=== PATIENT | female | born 1940 | race Caucasian/White ===

== ENCOUNTER → 2016-12-25 | Outpatient (CLI) | payer OTHER, MEDICARE ==
[2016-12-25 12:45] LABS: BASO % 0.3 %; BASO ABS # 0.03 K/uL (0-0.2); COMPLETE YES; EOS % 4.4 %; HEMATOCRIT 35.2 % (37-47); IG% 0.3 %; LYMPH % 22.1 %; LYMPH ABS # 2.01 K/uL (1.2-3.4); MEAN CELL VOLUME 77.5 fL (80-100); MEAN CORPUSCULAR HEMOGLOBIN 23.3 pg (25-34); MEAN CORPUSCULAR HGB CONC 30.1 g/dl (32-36); MEAN PLATELET VOLUME 10.1 fL (7.4-10.4); MONO % 6.3 %; NEUT % 66.6 %; PLATELET COUNT 394 K/uL (130-400); RED BLOOD COUNT 4.54 M/uL (4.2-5.4)
== END | disposition home or self-care (01) ==
LOC: EDSEX 10:35 → C.LABPBG 10:35
PROVIDERS: ATTEND Neuromusculoskeletal Medicine & OMM
DX: Z00.00 Encounter for general adult medical examination without abnormal findings (principal)

== ENCOUNTER → 2016-12-26 | Outpatient (CLI) | payer OTHER, MEDICARE ==
[2016-12-26 18:12] LABS: FERRITIN 10.7 ng/ml (8.0-388.0)
== END | disposition home or self-care (01) ==
LOC: C.LABPBG 14:50
PROVIDERS: ATTEND Neuromusculoskeletal Medicine & OMM
DX: D64.9 Anemia, unspecified (principal)

== ENCOUNTER → 2017-02-26 | Outpatient (CLI) | payer OTHER, MEDICARE ==
[2017-02-26 17:31] LABS: BASO % 0.3 %; BASO ABS # 0.03 K/uL (0-0.2); EOS % 2.3 %; HEMATOCRIT 42.7 % (37-47); IG% 0.2 %; LYMPH % 20.2 %; LYMPH ABS # 1.96 K/uL (1.2-3.4); MEAN CELL VOLUME 89.3 fL (80-100); MEAN CORPUSCULAR HGB CONC 31.4 g/dl (32-36); MEAN PLATELET VOLUME 11.3 fL (7.4-10.4); MONO % 4.8 %; NEUT % 72.2 %; PLATELET COUNT 263 K/uL (130-400); RED BLOOD COUNT 4.78 M/uL (4.2-5.4); WHITE BLOOD COUNT 9.71 K/uL (4.8-10.8)
[2017-02-26 17:47] LABS: FERRITIN 31.5 ng/ml (8.0-388.0)
[2017-02-26 17:59] LABS: ANISOCYTOSIS PRESENT; COMPLETE YES
== END | disposition home or self-care (01) ==
LOC: C.LABPBG 12:57
PROVIDERS: ATTEND Neuromusculoskeletal Medicine & OMM
DX: D50.9 Iron deficiency anemia, unspecified (principal)

== ENCOUNTER → 2017-10-17 | Outpatient (CLI) | payer OTHER, MEDICARE | END | disposition home or self-care (01) | LOC: C.LABPBG 12:47 | PROVIDERS: ATTEND Family Medicine | DX: E03.9 Hypothyroidism, unspecified (principal) ==

== ENCOUNTER → 2017-12-17 | Outpatient (CLI) | payer OTHER, MEDICARE | END | disposition home or self-care (01) | LOC: C.LABPBG 10:01 | PROVIDERS: ATTEND Family Medicine | DX: E03.9 Hypothyroidism, unspecified (principal) ==

== ENCOUNTER → 2018-05-28 | Outpatient (CLI) | payer OTHER, MEDICARE | END | disposition home or self-care (01) | LOC: C.LABPBG 12:54 | PROVIDERS: ATTEND Physician Assistant | DX: E03.9 Hypothyroidism, unspecified (principal) ==

== ENCOUNTER 2021-12-09 11:41 | Inpatient (IN) ==
--- NOTE | 2021-12-09 11:54 | Emergency Department Note ---
Impression & Plan Acute hypoxemic respiratory failure, Acute exacerbation of chronic obstructive pulmonary disease, Acute hypokalemia ED Provider Note NAME: BRIAN HAYNES AGE: 81 SEX: F : 1940 ARRIVES VIA: Ambulance INFORMANT: Patient, ED PROVIDER(S): Hiren Valenzuela MD Chief Complaint: Shortness of breath HPI: Patient presents due to concern for shortness of breath. The patient states that she does have some chronic shortness of breath but is been acutely worse over the last week. Specifically the patient states that this has been with dyspnea on exertion and activity. 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 The patient states that ever since then she has noticed her shortness of breath. The patient states it has gotten progressively worse and today was the worst it had been. The patient does have a known history of COPD was diagnosed last year. The patient states that she quit smoking a year ago. Patient denies any known history of DVT or PE. Patient has any recent surgeries procedures or hospitalizations. Patient denies any current cough. She is vaccinated for COVID including booster. Patient denies any leg swelling. Patient's oxygen was 80% when EMS arrived and the patient was placed on nasal cannula supplemental oxygen. The patient states that she has not had an oxygen requirement at home previously. ROS: See HPI for pertinent positives and negatives. A total of 10 systems were reviewed and otherwise negative. Past medical history: See below Surgical history: See below Social history: See below Physical Exam: GENERAL: NAD, wearing glasses, wearing a mask, non-toxic. EYE EXAM: Normal conjunctiva. PERRL, no anisocoria and EOM's grossly intact w/o pain. NECK: Supple, no nuchal rigidity, no adenopathy, non-tender. No signs of m eningismus. LUNGS: Scant wheezes with decreased breath sounds right upper chest. HEART: NSR, no MRG. ABDOMEN: Abdomen soft, non-tender, normo-active bowel sounds, no masses, no rebound or guarding. BACK: No CVA TTP. SKIN: No rashes and no bruising. UPPER EXTREMITIES: Upper extremities are grossly normal. LOWER EXTREMITIES: Grossly normal, trace pretibial symmetric edema without any calf pain, negative Homans' sign bilaterally. NEURO EXAM: A&O x3, cranial nerves II-XII grossly intact, normal speech, moves all 4 extremities on command w/o issue. Differential diagnoses: Reactive airway disease, pneumonia, pneumothorax, COPD, CHF, infections, cardiac ischemia, pulmonary embolism, musculoskeletal, gastrointestinal, as well as other pathologies. Course: Patient was seen and evaluated the bedside. Full history physical exam was performed. EKG interpreted by me Normal sinus rhythm, rate 97, normal intervals, left axis deviation, no obvious ST elevations, T wave version in lead III. Imaging Studies: See Below Cardiac monitoring: An order was placed for continuous cardiac monitoring. The monitor shows a rate of 95 with sinus rhythm. MDM: Patient was seen due to concern for shortness of breath and the patient was hypoxemic per EMS at 80%. The patient was tolerating 2 L nasal cannula. Patient was ordered treatment for likely COPD exacerbation. Patient did receive nebs, fluids, steroids and magnesium. Patient blood showed a white count of 10 with a normal H&H. Platelet count was unremarkable. Patient's kidney function is unremarkable with mild hypokalemia. The patient was ordered potassium for replacement. The patient already did receive magnesium. Troponin not det ectable. Flu and COVID negative. Chest x-ray does show emphysematous change. Patient did feel improved after treatments. Given the patient's new oxygen requirement I did speak with the on-call hospitalist and the patient was admitted to the medicine service by Dr. Iyer. Of note I did go back to check on the patient again and the patient reportedly got up to use the restroom and she desatted in the 60s. The patient was satting well on a nasal cannula at the bedside in the mid 90s, but I did express to the patient that if she did need to use the bathroom she needed to use the bedside c ommode any did to notify nursing many times that she felt like she needed to get out of bed. Patient understood. Critical Care: I have personally spent 47 minutes of critical care time in direct management of this patient. This includes bedside care, interpretation of diagnostic studies, and testing, discussion with consultants, patient, and family members, and other require inpatient management activities. This 47 minutes is in excess of all separately billable procedures. Past Med/Surg History Medical History Chronic constipation COPD (chronic obstructive pulmonary disease) Depression Eczema of both upper extremities Hyperlipidemia Hypothyroidism (acquired) Iron deficiency anemia Large hiatal hernia Macular degeneration (03/2013) Migraine headache Prediabetes Pulmonary fibrosis Tobacco dependence Surgical History History of tonsillectomy Family History Father Stroke Sister Family history of nephrolithiasis Mother Family history of scleroderma Family history of Raynaud's syndrome Denies family history of Ovarian cancer Prostate cancer Myocardial infarction Breast cancer Colorectal cancer Social History Smoking Status: Former smoker Tobacco Type: Cigarettes Age Started Using Tobacco: 32; Age Quit Using Tobacco: 80; packs per day: 0.5; Second Hand Exposure: No; Hx Alcohol Use: No Hx Substance Use: No Preferred Language: Nauruan Visual Impairment: Partially Limited Hearing Ability: Normal Office System Analyst Required: No Beliefs That Will Affect Care: None marital status: Current Living Situation: Family Current Living Situation Comment: Lives w/ daughter current occupational status: unemployed 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 Feels Safe at Home: Yes Childhood Exposure to Second-Hand Smoke: Yes Diet Comment: regular caffeine: Yes (coffee, pepsi) during the past year weight has: remained stable Dental Care, Regularly: Yes Physical Activity Frequency: Does not Exercise Seatbelt Use: always Sunscreen Use: Yes Allergies Allergies Allergy/AdvReac Type Severity Reaction Status Date / Time sulfite AdvReac Mild Headache Verified 12/09/21 14:18 Home Meds Home Medications Medication Instructions Recorded Confirmed ferrous sulfate 325 mg (65 mg 325 mg PO QAM tab 08/30/19 12/09/21 iron) tablet levothyroxine 100 mcg tablet 100 mcg PO DAILYBB 12/09/21 12/09/21 omeprazole magnesium 20 mg 20 mg PO DAILYBB 12/09/21 12/09/21 tablet,delayed release (Prilosec OTC) sertraline 100 mg tablet 100 mg PO QAM 12/09/21 12/09/21 simvastatin 20 mg tablet 20 mg PO HS 12/09/21 12/09/21 Previous Rx's Medication Instructions Recorded sumatriptan succinate 50 mg tablet 50 mg PO .COMPLEX PRN #9 tab 02/25/21 fluticasone propionate 115 2 inh INHALATION BID #12 g 11/18/21 mcg-salmeterol 21 mcg/actuation HFA inhaler (Advair HFA) Results & Data (ED) Vital Signs Vital Signs - 24 hr 12/09/21 12:08 12/09/21 14:08 Temperature 36.9 C 36.8 C Temperature Source Oral Oral Pulse Rate 96 H Pulse Rate [Apical] 96 H 94 H Pulse Rhythm Regular Pulse Rhythm [Apical] Regular Pulse Strength Normal Pulse Strength [Apical] Normal Respiratory Rate 18 22 Respiratory Effort / Characteristics Non-Labored Spontaneous Respiratory Depth Normal Respiratory Pattern Regular Blood Pressure 122/77 Blood Pressure [Right Arm] 122/87 128/70 Blood Pressure Mean 92 Blood Pressure Mean [Right Arm] 98 89 Blood Pressure Position Sitting Pulse Oximetry 94 96 Oxygen Delivery Method Nasal Cannula Nasal Cannula Oxygen Flow Rate 2 2 Sepsis Recent Fever Within 48 Hours No Sepsis New/Unexplained Change in Mental Status N/A Sepsis Action Taken by Nursing No Action Required Home Medications Current Medication List: was personally reviewed by me Laboratory Data Attestation: I reviewed the patient's lab results. Result diagrams: 12/09/21 11:58 12/09/21 11:58 Lab Results 12/09/21 12/09/21 12/09/21 Range/Units 11:58 11:58 12:05 WBC 10.25 (4.8-10.8) K/uL RBC 4.22 (4.2-5.4) M/uL Hgb 13.1 (12.0-16.0) g/dL Hct 38.8 (37-47) % MCV 91.9 (80-100) fL MCH 31.0 (25-34) pg MCHC 33.8 (32-36) g/dL RDW Std Deviation 48.6 H (36.4-46.3) fL RDW Coeff of Dannielle 14.3 (11.5-14.5) % Plt Count 246 (130-400) K/uL MPV 10.8 H (7.4-10.4) fL Immature Gran % (Auto) 0.3 % Neut % (Auto) 77.7 % Lymph % (Auto) 11.3 % [place] % (Auto) 9.7 % Eos % (Auto) 0.6 % Baso % (Auto) 0.4 % Neut # (Auto) 7.97 H (1.4-6.5) K/uL Lymph # (Auto) 1.16 L (1.2-3.4) K/uL [place] # (Auto) 0.99 H (0.11-0.59) K/uL Eos # (Auto) 0.06 (0-0.5) K/uL Baso # (Auto) 0.04 (0-0.2) K/uL Immature Gran # (Auto) 0.03 H (0.00-0.02) K/uL VBG pH 7.47 H (7.36-7.41) VBG pCO2 34 L (38-50) mmHg VBG pO2 30 mmHg VBG HCO3 25 mmol/L VBG O2 Saturation < 60.0 % VBG Base Excess 1.3 mEq/L Barometric Pressure 730.5 mm/Hg Sodium 135 L (136-145) mmol/L Potassium 3.1 L (3.5-5.1) mmol/L Chloride 104 (98-107) mmol/L Carbon Dioxide 21 (21-32) mmol/L Anion Gap 10 (3-11) BUN 13 (6-23) mg/dl Creatinine 0.55 L (0.6-1.2) mg/dl Est Cr Clr Drug Dosing 83.4 ml/min Est GFR ( Amer) 103.4 ml/min Est GFR (Non-Af Amer) 89.2 ml/min BUN/Creatinine Ratio 23.6 H (10-20) Glucose 110 H (70-99(Fasting)) mg/dl Calcium 8.8 (8.5-10.1) mg/dl Magnesium 1.7 (1.7-2.4) mg/dl Total Bilirubin 0.5 (0.2-1.0) mg/dl AST 28 (13-39) U/L ALT 19 (7-52) U/L Alkaline Phosphatase 96 (34-104) U/L Troponin I < 0.03 (0-0.04) ng/ml Total Protein 6.7 (6.0-8.3) gm/dl Albumin 3.4 (3.4-5.0) gm/dl Globulin 3.3 (2.5-4.0) gm/dl Albumin/Globulin Ratio 1.0 (0.9-2) Influ A Molecular Assay (Negative) Influ B Molecular Assay (Negative) SARS-CoV-2, RNA, NAAT (NEGATIVE) 12/09/21 12/09/21 Range/Units 12:37 13:25 WBC (4.8-10.8) K/uL RBC (4.2-5.4) M/uL Hgb (12.0-16.0) g/dL Hct (37-47) % MCV (80-100) fL MCH (25-34) pg MCHC (32-36) g/dL RDW Std Deviation (36.4-46.3) fL RDW Coeff of Dannielle (11.5-14.5) % Plt Count (130-400) K/uL MPV (7.4-10.4) fL Immature Gran % (Auto) % Neut % (Auto) % Lymph % (Auto) % [place] % (Auto) % Eos % (Auto) % Baso % (Auto) % Neut # (Auto) (1.4-6.5) K/uL Lymph # (Auto) (1.2-3.4) K/uL [place] # (Auto) (0.11-0.59) K/uL Eos # (Auto) (0-0.5) K/uL Baso # (Auto) (0-0.2) K/uL Immature Gran # (Auto) (0.00-0.02) K/uL VBG pH (7.36-7.41) VBG pCO2 (38-50) mmHg VBG pO2 mmHg VBG HCO3 mmol/L VBG O2 Saturation % VBG Base Excess mEq/L Barometric Pressure mm/Hg Sodium (136-145) mmol/L Potassium (3.5-5.1) mmol/L Chloride (98-107) mmol/L Carbon Dioxide (21-32) mmol/L Anion Gap (3-11) BUN (6-23) mg/dl Creatinine (0.6-1.2) mg/dl Est Cr Clr Drug Dosing ml/min Est GFR ( Amer) ml/min Est GFR (Non-Af Amer) ml/min BUN/Creatinine Ratio (10-20) Glucose (70-99(Fasting)) mg/dl Calcium (8.5-10.1) mg/dl Magnesium (1.7-2.4) mg/dl Total Bilirubin (0.2-1.0) mg/dl AST (13-39) U/L ALT (7-52) U/L Alkaline Phosphatase (34-104) U/L Troponin I (0-0.04) ng/ml Total Protein (6.0-8.3) gm/dl Albumin (3.4-5.0) gm/dl Globulin (2.5-4.0) gm/dl Albumin/Globulin Ratio (0.9-2) Influ A Molecular Assay Negative (Negative) Influ B Molecular Assay Negative (Negative) SARS-CoV-2, RNA, NAAT NEGATIVE (NEGATIVE) Administered Medications Azithromycin (Azithromycin 250 Mg Tab) 500 mg PO DAILY WILL Stop: 12/16/21 15:29 Last Admin: 12/09/21 16:27 Dose: 500 mg Documented by: [id number] Discontinued Medications Albuterol (Albut/Ipratrop 3mg/0.5mg Neb 3 Ml Vial) 6 ml INH NOW STA Stop: 12/09/21 12:01 Last Admin: 12/09/21 12:28 Dose: 6 ml Documented by: [id number] Sodium Chloride (Nss) 500 mls @ 999 mls/hr IV .Q31M STA Stop: 12/09/21 12:30 Last Infusion: 12/09/21 13:38 Dose: 0 mls/hr Documented by: [id number] Admin: 12/09/21 12:27 Dose: 999 mls/hr Documented by: [id number] Magnesium Sulfate/Dextrose (Magnesium Sulfate / D5w) 1 gm in 100 mls @ 100 mls/hr IV NOW STA Stop: 12/09/21 13:00 Last Infusion: 12/09/21 13:37 Dose: 0 mls/hr Documented by: [id number] Admin: 12/09/21 12:28 Dose: 100 mls/hr Documented by: [id number] Methylprednisolone (Methylprednisolone 125 Mg/2 Ml Vial) 60 mg IV NOW STA Stop: 12/09/21 12:01 Last Admin: 12/09/21 12:27 Dose: 60 mg Documented by: [id number] Potassium Chloride (Potassium Chloride Crtab 20 Meq Tabcr) 40 meq PO NOW STA Stop: 12/09/21 12:56 Last Admin: 12/09/21 13:10 Dose: 40 meq Documented by: [id number] Imaging Data Radiologist's Impression: Chest X-Ray 12/09/21 12:01 XR chest 1V portable HISTORY: 81 years-old Female Dyspnea acute shortness of breath COMPARISON: Chest CT 12/08/2020 TECHNIQUE: Portable AP view of the chest FINDINGS: Cardiac silhouette is mildly enlarged. Chronic interstitial lung disease without pneumothorax, pleural effusion or overt pulmonary edema. Progressively worsened interstitial coarsening. Emphysema. Hiatal hernia. Degenerative changes of the shoulders and spine. IMPRESSION: 1. Emphysema with chronic interstitial lung disease. 2. Aggressively worsened reticular interstitial opacities may represent progressive fibrosis, pulmonary edema versus interstitial pneumonia. ACT 112: Negative or not required by law. The above report was generated using voice recognition software. It may contain grammatical, syntax or spelling errors. Electronically signed by: Glenn Richards M.D. 12/09/2021 1:00 PM Discharge Plan Visit Data Chief Complaint: Shortness of Breath/Dyspnea Stated Complaint: SOB ED Provider: Hiren Valenzuela Discharge Problem: Acute hypoxemic respiratory failure, Acute exacerbation of chronic obstructive pulmonary disease, Acute hypokalemia Patient Disposition: Admitted As Inpatient
[2021-12-09] MEDS ORDERED: SODIUM CHLORIDE 0.9% 500 ML IV STA (12:00)
[2021-12-09] MEDS ORDERED: ALBUT/IPRATROP 3MG/0.5MG NEB 3 ML VIAL INH STA (12:00)
[2021-12-09] MEDS ORDERED: methylPREDNISolone 125 MG/2 ML VIAL IV STA (12:00)
[2021-12-09] MEDS ORDERED: MAGNESIUM SULFATE / D5W 1 GM/100 ML BAG IV STA (12:01)
[2021-12-09 12:08] LABS: Basophils # (auto) 0.04 K/uL (0-0.2); Basophils % (auto) 0.4 %; Eosinophils # (auto) 0.06 K/uL (0-0.5); Eosinophils % (auto) 0.6 %; Hematocrit (blood only) 38.8 % (37-47); Hemoglobin 13.1 g/dL (12.0-16.0); Immature Granulocytes # (auto) 0.03 K/uL (0.00-0.02); Immature Granulocytes % (auto) 0.3 %; Lymphocytes # (auto) 1.16 K/uL (1.2-3.4); Lymphocytes % (auto) 11.3 %; Mean Corpuscular Hgb Conc 33.8 g/dL (32-36); Mean Corpuscular Volume 91.9 fL (80-100); Mean Platelet Volume 10.8 fL (7.4-10.4); Monocytes # (auto) 0.99 K/uL (0.11-0.59); Monocytes % (auto) 9.7 %; Neutrophils # (auto) 7.97 K/uL (1.4-6.5); Neutrophils % (auto) 77.7 %; Platelet Count 246 K/uL (130-400); RDW Coefficient of Variation 14.3 % (11.5-14.5); RDW Standard Deviation 48.6 fL (36.4-46.3); Red Blood Count 4.22 M/uL (4.2-5.4); White Blood Count 10.25 K/uL (4.8-10.8)
[2021-12-09 12:19] LABS: Base Excess VBG 1.3 mEq/L; HCO3 VBG 25 mmol/L; PCO2 VBG 34 mmHg (38-50); PO2 VBG 30 mmHg; pH VBG 7.47 (7.36-7.41)
[2021-12-09 12:20] LABS: Oxygen Saturation VBG < 60.0 %
[2021-12-09 12:29] LABS: Alanine Aminotransferase 19 U/L (7-52); Albumin Level 3.4 gm/dl (3.4-5.0); Alkaline Phosphatase 96 U/L (34-104); Anion Gap 10 (3-11); Aspartate Aminotransferase 28 U/L (13-39); BUN Creatinine Ratio 23.6 (10-20); Bilirubin,Total 0.5 mg/dl (0.2-1.0); Blood Urea Nitrogen 13 mg/dl (6-23); Calcium 8.8 mg/dl (8.5-10.1); Carbon Dioxide 21 mmol/L (21-32); Chloride 104 mmol/L (98-107); Creatinine Clr Calc Pharmacy 83.4 ml/min; Est GFR (African American) 103.4 ml/min; Est GFR (Non-African American) 89.2 ml/min; Globulin 3.3 gm/dl (2.5-4.0); Glucose 110 mg/dl (70-99(Fasting)); Magnesium 1.7 mg/dl (1.7-2.4); Potassium 3.1 mmol/L (3.5-5.1); Sodium 135 mmol/L (136-145); Total Protein 6.7 gm/dl (6.0-8.3)
[2021-12-09 12:30] LABS: Troponin I < 0.03 ng/ml (0-0.04)
[2021-12-09] MEDS ORDERED: POTASSIUM CHLORIDE CRTAB 20 MEQ TABCR PO STA (12:55)
--- NOTE | 2021-12-09 13:01 | XRay Report ---
XR chest 1V portable HISTORY: 81 years-old Female Dyspnea acute shortness of breath COMPARISON: Chest CT 12/08/2020 TECHNIQUE: Portable AP view of the chest FINDINGS: Cardiac silhouette is mildly enlarged. Chronic interstitial lung disease without pneumothorax, pleura l effusion or overt pulmonary edema. Progressively worsened interstitial coarsening. Emphysema. Hiata l hernia. Degenerative changes of the shoulders and spine. IMPRESSION: 1. Emphysema with chronic interstitial lung disease. 2. Aggressively worsened reticular interstitial opacities may represent progressive fibrosis, pulmona ry edema versus interstitial pneumonia. ACT 112: Negative or not required by law. The above report was generated using voice recognition software. It may contain grammatical, syntax o r spelling errors. Electronically signed by: Glenn Richards M.D. 12/09/2021 1:00 PM
[2021-12-09 13:10] LABS: Influenza A virus by PCR Negative (Negative); Influenza B virus by PCR Negative (Negative)
--- NOTE | 2021-12-09 15:29 | History & Physical Report ---
Date of Service December 09, 2021 Assessment & Plan (1) Acute exacerbation of chronic obstructive pulmonary disease: Plan: -DuoNeb scheduled Q6. -Prednisone 40mg starting tomorrow. -Guaifnesin 1200mg BID. -Albuterol Q2 prn -Azithromycin 500mg IV x3 days. -Pulmonology consulted for further evaluation. (2) Acute hypokalemia: Plan: -K+ 3.1, received 40 mEq KCl in ED. -Repeat K+ 4.0 at 1900. -BMP in AM (3) Iron deficiency anemia: Plan: -Continue PO iron daily. (4) Hypothyroidism (acquired): Plan: -Continue levothyroxine 100 mcg daily. (5) Hyperlipidemia: Plan: -Continue simvastatin 20 mg PO HS. (6) Depression: Plan: -Continue zoloft 100mg daily. (7) Migraine headache: Plan: -Sumatriptan prn. Plan: -Admit inpt. -DNR/DNI -SCDs, Lovenox ordered. History of Present Illness Chief Complaint: Shortness of breath Primary Care Provider: Nini Solitario DO Patient is a 81-year-old female with a past medical history of COPD, hypothyroidism, hyperlipidemia, depression who presented today from an outpatient visit for SOB SpO2 80% on room air in office. Patient states for the past week, she has been working at a local [employer] and has just felt more short of breath than usual with activity that is alleviated with rest. Patient does have some chronic shortness of breath, but not to this extent. Daughter states she is typically sedentary, but she has been more active this week than usual since taking on the role at the [employer]. Today, she was sitting in a recliner when daughter states she started gasping for air, which prompted visit to her PCP, who referred her to the ED for evaluation upon her O2 sats, which is reported to be 80%. Denies fever/chills, chest pain, palpitations, presyncope/syncope, weakness, fatigue, nausea, vomiting, urinary symptoms. Received COVID vaccine plus booster. No sick contacts. Patient was diagnosed with COPD within the year or so, is only on an Advair inhaler twice per day. No home oxygen. She was scheduled to have an outpatient chest CT within the month for follow-up. Upon arrival to the ED, patient was placed on nasal cannula, received nebulizer treatment, magnesium, and methylprednisolone 60 mg. Her shortness of breath was alleviated, she was breathing more comfortably with O2 sats in the 90s on 2 L nasal cannula. During my visit with her patient did get up to ambulate to bathroom, however became very short of breath with sats dropping into the 70s, patient placed back on 2L NC sats improved to mid 90s. VSS and WNL, O2 in 90s on 2L NC. ED evaluation with CBC unremarkable, CMP notable for potassium 3.1, received 40 mEq in ED, repeating BMP now. COVID negative. CXR showed emphysema with chronic interstitial lung disease and aggressively worsened reticular interstitial opacities may represent progressive fibrosis, pulmonary edema versus interstitial pneumonia. EKG showed NSR. Allergies Allergy/AdvReac Type Severity Reaction Status Date / Time sulfite AdvReac Mild Headache Verified 12/09/21 14:18 Home Medications Medication Instructions Recorded Confirmed Type ferrous sulfate 325 mg (65 mg 325 mg PO QAM tab 08/30/19 12/09/21 History iron) tablet sumatriptan succinate 50 mg tablet 50 mg PO .COMPLEX PRN #9 tab 02/25/21 12/09/21 Rx fluticasone propionate 115 2 inh INHALATION BID #12 g 11/18/21 12/09/21 Rx mcg-salmeterol 21 mcg/actuation HFA inhaler (Advair HFA) levothyroxine 100 mcg tablet 100 mcg PO DAILYBB 12/09/21 12/09/21 History omeprazole magnesium 20 mg 20 mg PO DAILYBB 12/09/21 12/09/21 History tablet,delayed release (Prilosec OTC) sertraline 100 mg tablet 100 mg PO QAM 12/09/21 12/09/21 History simvastatin 20 mg tablet 20 mg PO HS 12/09/21 12/09/21 History Past Med/Surg History Medical History Chronic constipation COPD (chronic obstructive pulmonary disease) Depression Eczema of both upper extremities Hyperlipidemia Hypothyroidism (acquired) Iron deficiency anemia Large hiatal hernia Macular degeneration (03/2013) Migraine headache Prediabetes Pulmonary fibrosis Tobacco dependence Surgical History History of tonsillectomy Family History Father Stroke Sister Family history of nephrolithiasis Mother Family history of scleroderma Family history of Raynaud's syndrome Denies family history of Ovarian cancer Prostate cancer Myocardial infarction Breast cancer Colorectal cancer Social History Smoking Status: Never smoker Tobacco Type: Cigarettes Age Started Using Tobacco: 32; Age Quit Using Tobacco: 80; packs per day: 0.5; Smoking End Date: 1 year ago; Second Hand Exposure: Yes (father smoked when she was little); Do You Dip or Chew Tobacco: No; Tobacco Cessation Education Requested by Patient: No Hx Alcohol Use: No (allergive to sulfite) Hx Substance Use: No Preferred Language: Egyptian Communication Ability: Effective Visual Impairment: Partially Limited Hearing Ability: Normal Foundation Director Required: No Beliefs That Will Affect Care: None marital status: Current Living Situation: Family Current Living Situation Comment: Lives w/ daughter current occupational status: unemployed 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 Other Information That Helps Us Care for You: No Feels Safe at Home: Yes Safety Concerns: Feels Safe At This Time Childhood Exposure to Second-Hand Smoke: Yes Diet Comment: regular caffeine: Yes (coffee, pepsi) during the past year weight has: remained stable Dental Care, Regularly: Yes Physical Activity Frequency: Does not Exercise Seatbelt Use: always Sunscreen Use: Yes Assistive Devices: Denture - Upper and Oxygen - Continuous Review of Systems Review of Systems: Constitutional: No fever, sweats or chills Eyes: No diplopia, no worsening or blurred vision ENT: normal hearing, no trouble swallowing Respiratory: Reports shortness of breath with activity, no increase in chronic cough or sputum production. Cardiovascular: No chest pain, tightness or palpitations Abdomen: No pain, nausea, vomiting, diarrhea or constipation Musculoskeletal: No joint pain, calf pain, swelling Neurologic: No weakness, numbness/tingling, or balance problems Psychiatric: No anxiety or depression Skin: No rash or itch Physical Exam Physical Exam: General: awake, alert, no apparent distress Head: Normocephalic, atraumatic ENT: PERRL, EOMI, no pharyngeal exudate, mucous membranes moist Chest: No expiratory wheezes appreciated, on 2 L nasal cannula, no accessory muscle use, symmetric chest wall movement Cardiac: Tachycardic, regular rhythm, no murmur, no JVD, normal peripheral pulses, good capillary refill Abdominal: NABS x 4 quadrants, soft, nontender to palpation, no rebound, guarding or tenderness Extremities: Normal inspection, no peripheral edema or erythema, calfs nontender to palpation Psych: Normal mood and affect Neuro: AAO x 3, strength intact bilaterally and rated 5/5, no motor deficits, speech is clear, no peripheral sensory deficits Skin: no rash or erythema Results & Data Results & Data ([facility]) Vital Signs (Past 12 Hours) Vital Signs Temp Pulse Pulse Resp BP BP Pulse Ox 12/09/21 14:08 36.8 C 94 H 22 128/70 96 12/09/21 12:08 36.9 C 96 H 96 H 18 122/77 122/87 94 Laboratory Results Abnormal lab results 12/09/21 12/09/21 12/09/21 Range/Units 11:58 11:58 12:05 RDW Std Deviation 48.6 H (36.4-46.3) fL MPV 10.8 H (7.4-10.4) fL Neut # (Auto) 7.97 H (1.4-6.5) K/uL Lymph # (Auto) 1.16 L (1.2-3.4) K/uL C[place]shaw # (Auto) 0.99 H (0.11-0.59) K/uL Immature Gran # (Auto) 0.03 H (0.00-0.02) K/uL VBG pH 7.47 H (7.36-7.41) VBG pCO2 34 L (38-50) mmHg Sodium 135 L (136-145) mmol/L Potassium 3.1 L (3.5-5.1) mmol/L Creatinine 0.55 L (0.6-1.2) mg/dl BUN/Creatinine Ratio 23.6 H (10-20) Glucose 110 H (70-99(Fasting)) mg/dl Diagnostic Findings Chest X-Ray 12/09/21 12:01 XR chest 1V portable HISTORY: 81 years-old Female Dyspnea acute shortness of breath COMPARISON: Chest CT 12/08/2020 TECHNIQUE: Portable AP view of the chest FINDINGS: Cardiac silhouette is mildly enlarged. Chronic interstitial lung disease without pneumothorax, pleural effusion or overt pulmonary edema. Progressively worsened interstitial coarsening. Emphysema. Hiatal hernia. Degenerative changes of the shoulders and spine. IMPRESSION: 1. Emphysema with chronic interstitial lung disease. 2. Aggressively worsened reticular interstitial opacities may represent progressive fibrosis, pulmonary edema versus interstitial pneumonia. Medications Administered Current Medications Acetaminophen (Acetaminophen 325 Mg Tab) 650 mg PO Q4H PRN PRN Reason: Pain or Fever Stop: 01/08/22 17:31 Albuterol (Albut/Ipratrop 3mg/0.5mg Neb 3 Ml Vial) 3 ml INH Q6R WILL Stop: 01/08/22 18:59 Last Admin: 12/09/21 19:08 Dose: 3 ml Documented by: Albuterol (Albuterol 0.083% Nebu Soln 3 Ml Vial) 2.5 mg NEB Q2H PRN; Protocol PRN Reason: Shortness Of Breath Stop: 01/08/22 19:02 Azithromycin (Azithromycin 250 Mg Tab) 500 mg PO DAILY WILL Stop: 12/16/21 15:29 Last Admin: 12/09/21 16:27 Dose: 500 mg Documented by: Enoxaparin Sodium (Enoxaparin Inj 40 Mg/0.4 Ml Syr) 40 mg SQ Q24H WILL Stop: 01/08/22 20:59 Ferrous Sulfate (Ferrous Sulfate 325 Mg Tab) 325 mg PO QAM WILL Stop: 01/09/22 08:59 Fluticasone/Vilanterol (Fluticasone/Vilanterol 100/25mcg 14 Puffs/Inhaler) 1 puffs INH DAILY [facility]; Protocol Stop: 01/09/22 08:59 Guaifenesin (Guaifenesin 600 Mg Tabcr) 1,200 mg PO BID WILL Stop: 01/08/22 20:59 Levothyroxine Sodium (Levothyroxine Sodium 100 Mcg Tablet) 100 mcg PO DAILYBB [facility] Stop: 01/09/22 06:29 Ondansetron HCl (Ondansetron Inj 2 Mg/Ml 2 Ml Vial) 4 mg IV Q6H PRN PRN Reason: Nausea Stop: 01/08/22 17:13 Pantoprazole Sodium (Pantoprazole 40 Mg Tab) 40 mg PO DAILY WILL Stop: 01/09/22 08:59 Polyethylene Glycol (Polyethylene (Miralax) 17 Gm Pack) 17 gm PO DAILY PRN PRN Reason: Constipation Stop: 01/08/22 17:13 Prednisone (Prednisone 20 Mg Tab) 40 mg PO QAM WILL Stop: 12/15/21 08:59 Sertraline HCl (Sertraline Hcl 100 Mg Tablet) 100 mg PO QAM WILL Stop: 01/09/22 08:59 Simvastatin (Simvastatin 20 Mg Tab) 20 mg PO HS [facility] Stop: 01/08/22 20:59 Sumatriptan Succinate (Sumatriptan Succinate 50 Mg Tab) 50 mg PO UD PRN PRN Reason: migraine headache Stop: 01/08/22 17:13 ECG Additional Comments: Normal sinus rhythm Left axis deviation Abnormal ECG No previous ECGs available Confirmed by Yemi Morgan ([id number]) on 12/09/2021 5:07:42 PM Code Status & VTE Plan Code Status DNR/DNI VTE Prophylaxis Plan VTE Prophylaxis will be ordered: Yes Supervising Physician Co-Signing Physician Notes I have personally evaluated and examined this patient. I agree with assessment and plan of Cj Corcoran PA-C. Most consistent with COPD exacerbation patient improved during my evaluation. PG Care Time/CCT Total # of Minutes Spent Total Time Spent with Patient: Total time spent is greater than 50% in coordination of care (as documented) at patient's floor/unit and/or counseling patient: Coding Level of Care Code 58050 Initial Inpt Care Lvl 3 Diagnoses Acute exacerbation of chronic obstructive pulmonary disease J44.1 Acute hypokalemia E87.6 Migraine headache G43.909 Hypothyroidism (acquired) E03.9 Hyperlipidemia E78.5 Depression F32.9 Iron deficiency anemia D50.9
[2021-12-09] MEDS ORDERED: AZITHROMYCIN 250 MG TAB PO SCH (15:30)
--- NOTE | 2021-12-09 17:08 | Electrocardiogram Report ---
Test Reason : Blood Pressure : / mmHG Vent. Rate : 097 BPM Atrial Rate : 097 BPM P-R Int : 134 ms QRS Dur : 084 ms QT Int : 366 ms P-R-T Axes : 041 -36 013 degrees QTc Int : 464 ms Normal sinus rhythm Left axis deviation Abnormal ECG No previous ECGs available Confirmed by Yemi Morgan ([id number]) on 12/09/2021 5:07:42 PM Referred By: REFERRED SELF Confirmed By:Yemi Morgan
[2021-12-09] MEDS ORDERED: SUMAtriptan succinate 50 MG TAB PO PRN (17:14)
[2021-12-09] MEDS ORDERED: POLYETHYLENE (MIRALAX) 17 GM PACK PO PRN (17:14)
[2021-12-09] MEDS ORDERED: ONDANSETRON INJ 2 MG/ML 2 ML VIAL IV PRN (17:14)
[2021-12-09] MEDS ORDERED: ACETAMINOPHEN 325 MG TAB PO PRN (17:32)
[2021-12-09] MEDS ORDERED: ALBUTEROL 0.083% NEBU SOLN 3 ML VIAL NEB PRN (19:03)
[2021-12-09] MEDS: ALBUT/IPRATROP 3MG/0.5MG NEB 3 ML VIAL INH SCH (19:08)
[2021-12-09 19:48] LABS: BUN Creatinine Ratio 20.3 (10-20); Calcium 8.8 mg/dl (8.5-10.1); Creatinine Clr Calc Pharmacy 77.7 ml/min; Est GFR (Non-African American) 87.2 ml/min
[2021-12-09] MEDS: ENOXAPARIN INJ 40 MG/0.4 ML SYR SQ SCH (20:57)
[2021-12-09] MEDS: guaiFENesin 600 MG TABCR PO SCH (20:58)
[2021-12-09] MEDS: SIMVASTATIN 20 MG TAB PO SCH (20:58)
[2021-12-10] MEDS: ALBUT/IPRATROP 3MG/0.5MG NEB 3 ML VIAL INH SCH ×2 (00:05→07:27)
[2021-12-10 05:45] LABS: Basophils # (auto) 0.01 K/uL (0-0.2); Basophils % (auto) 0.1 %; Eosinophils # (auto) 0.06 K/uL (0-0.5); Eosinophils % (auto) 0.6 %; Hematocrit (blood only) 36.7 % (37-47); Hemoglobin 12.3 g/dL (12.0-16.0); Immature Granulocytes # (auto) 0.02 K/uL (0.00-0.02); Immature Granulocytes % (auto) 0.2 %; Lymphocytes # (auto) 1.38 K/uL (1.2-3.4); Lymphocytes % (auto) 13.1 %; Mean Corpuscular Hemoglobin 31.1 pg (25-34); Mean Corpuscular Hgb Conc 33.5 g/dL (32-36); Mean Corpuscular Volume 92.7 fL (80-100); Mean Platelet Volume 10.9 fL (7.4-10.4); Monocytes % (auto) 12.4 %; Neutrophils # (auto) 7.74 K/uL (1.4-6.5); Neutrophils % (auto) 73.6 %; Platelet Count 233 K/uL (130-400); RDW Coefficient of Variation 14.2 % (11.5-14.5); RDW Standard Deviation 48.4 fL (36.4-46.3); Red Blood Count 3.96 M/uL (4.2-5.4); White Blood Count 10.51 K/uL (4.8-10.8)
[2021-12-10] MEDS: LEVOTHYROXINE SODIUM 100 MCG TABLET PO SCH (05:59)
[2021-12-10 06:14] LABS: BUN Creatinine Ratio 24.4 (10-20); Calcium 8.8 mg/dl (8.5-10.1); Creatinine Clr Calc Pharmacy 110.2 ml/min; Est GFR (African American) 113.9 ml/min; Est GFR (Non-African American) 98.3 ml/min; Potassium 3.8 mmol/L (3.5-5.1)
[2021-12-10] MEDS ORDERED: ALBUT/IPRATROP 3MG/0.5MG NEB 3 ML VIAL INH PRN (08:57)
--- NOTE | 2021-12-10 08:57 | Pulmonary Consultation ---
Date of Consultation December 10, 2021 Assessment & Plan (1) Acute hypoxemic respiratory failure: (2) COPD (chronic obstructive pulmonary disease): (3) Pulmonary fibrosis: (4) Dyspnea: Impression: 81-year-old female with extensive history of tobacco abuse who quit smoking a year ago admitted to the hospital with hypoxemia. Her CT scan last year demonstrated more subpleural interstitial changes than actual emphysematous changes and she is never had prior PFTs. She may have some underl matilde obstructive lung disease however I think the bigger issue is probably her interstitial lung disease and associated hypoxemic respiratory failure. Recommendations: 1. ILD: Patient will undergo high-resolution CT scan of the chest. We will also conduct serological evaluation to look for secondary etiologies of potential subpleural pulmonary fibrosis. 2. I do not think the patient requires prednisone now. She is not currently wheezing and has not demonstrated any wheezing in the past. She can complete the course of 5 days of azithromycin for now. 3. She should undergo complete pulmonary function testing including pre and post spirometry, lung volumes, and diffusion capacity in the outpatient setting. 4. Its likely the patient will require supplemental oxygen at discharge. Re commend formal two-step and overnight oximetry on oxygen to ensure adequate prescription. 5. Once the patient's diagnostics are completed and oxygen is assessed and set up if appropriate, the patient can likely be dismissed from the hospital with outpatient pulmonary follow-up after her PFTs are completed in 4 to 6 weeks. The above recommendations and plan were extensively discussed with the patient at the time of evaluation. Questions were answered to the best of my ability. She expressed understanding and is in agreement with plan as outlined History of Present Illness Attending Physician: Aneesh Frias History of Present Illness Asked by hospitalist to evaluate this patient admitted with shortness of breath, hypoxemia, and an abnormal CT scan. History is obtained from discussion with the patient as well as review of electronic medical record. This 81-year-old female with about a 27-palr-rtun history of tobacco abuse who quit smoking a year ago states that she was given a diagnosis of COPD based on the CT scan a year ago. This was performed as a lung cancer screening exam. She has never had outpatient pulmonary function testing performed. She presented to the hospital with weakness and shortness of breath and hypoxemia. She was given oxygen and treated presumptively for COPD exacerbation. She denies any wheezing, coughing, or sputum production. She uses Advair in the outpatient setting but is unclear if this offers her clinical benefit. The patient definitely feels that the oxygen is an improvement for her. She is never had a work-up for interstitial lung disease. The patient has no significant occupational or environmental exposures. She works for the [employer]. She has 1 cat at home but no other exotic animals. Specifically denies any bird exposures. No hobbies that result in any significant inhalational exposures. She denies any family history of lung disease. No hot tub exposures. She denies any signs or symptoms of Sjogren's syndrome including dry eyes or dry mouth. No history of connective tissue dis ease or rheumatologic disorder that she is aware of. Allergies Allergy/AdvReac Type Severity Reaction Status Date / Time sulfite AdvReac Mild Headache Verified 12/09/21 14:18 Home Medications Medication Instructions Recorded Confirmed Type ferrous sulfate 325 mg (65 mg 325 mg PO QAM tab 08/30/19 12/09/21 History iron) tablet sumatriptan succinate 50 mg tablet 50 mg PO .COMPLEX PRN #9 tab 02/25/21 12/09/21 Rx fluticasone propionate 115 2 inh INHALATION BID #12 g 11/18/21 12/09/21 Rx mcg-salmeterol 21 mcg/actuation HFA inhaler (Advair HFA) levothyroxine 100 mcg tablet 100 mcg PO DAILYBB 12/09/21 12/09/21 History omeprazole magnesium 20 mg 20 mg PO DAILYBB 12/09/21 12/09/21 History tablet,delayed release (Prilosec OTC) sertraline 100 mg tablet 100 mg PO QAM 12/09/21 12/09/21 History simvastatin 20 mg tablet 20 mg PO HS 12/09/21 12/09/21 History Patient History Medical History Chronic constipation COPD (chronic obstructive pulmonary disease) Depression Eczema of both upper extremities Hyperlipidemia Hypothyroidism (acquired) Iron deficiency anemia Large hiatal hernia Macular degeneration (03/2013) Migraine headache Prediabetes Pulmonary fibrosis Tobacco dependence Surgical History History of tonsillectomy Family History Father Stroke Sister Family history of nephrolithiasis Mother Family history of scleroderma Family history of Raynaud's syndrome Denies family history of Ovarian cancer Prostate cancer Myocardial infarction Breast cancer Colorectal cancer Social History Smoking Status: Never smoker Tobacco Type: Cigarettes Age Started Using Tobacco: 32; Age Quit Using Tobacco: 80; packs per day: 0.5; Smoking End Date: 1 year ago; Second Hand Exposure: Yes (father smoked when she was little); Do You Dip or Chew Tobacco: No; Tobacco Cessation Education Requested by Patient: No Hx Alcohol Use: No (allergive to sulfite) Hx Substance Use: No Preferred Language: Greenlandic Communication Ability: Effective Visual Impairment: Partially Limited Hearing Ability: Normal Director Of Corporate Communications Required: No Beliefs That Will Affect Care: None marital status: Current Living Situation: Family Current Living Situation Comment: Lives w/ daughter current occupational status: unemployed 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 No additions or deletions Physical Exam Constitutional: WD/WN, vitals as above Neck: trachea midline, no thyromegaly Respiratory: normal respiratory effort; no respiratory distress, no labored breathing and not tachypneic Auscultation: + crackles; no wheezes Predominantly Velcro crackles at the bases Cardiovascular: RRR, no murmur, no edema Gastrointestinal (Abdomen): normal bowel sounds, soft, nontender, no h epatosplenomegaly Musculoskeletal: Extremities: extremities normal to inspection Skin: no rashes, warm and dry Neurologic: Nonfocal exam Lymphatic: no cervical lymphadenopathy Results & Data Results & Data ([facility]) Vital Signs (Past 12 Hours) Vital Signs Temp Pulse Pulse Resp BP Pulse Ox Pulse Ox 12/10/21 07:28 77 18 97 12/10/21 07:15 37.0 C 74 19 125/75 93 12/09/21 22:19 95 12/09/21 21:57 36.8 C 96 H 20 128/74 96 12/09/21 21:56 96 12/09/21 21:42 36.8 C 96 H 20 128/74 94 12/09/21 21:00 98 H 23 Laboratory Results 12/10/21 05:27 12/10/21 05:27 Diagnostic Findings XR chest 1V portable 12/09/21 HISTORY: 81 years-old Female Dyspnea acute shortness of breath COMPARISON: Chest CT 12/08/2020 TECHNIQUE: Portable AP view of the chest FINDINGS: Cardiac silhouette is mildly enlarged. Chronic interstitial lung disease without pneumothorax, pleural effusion or overt pulmonary edema. Progressively worsened interstitial coarsening. Emphysema. Hiatal hernia. Degenerative changes of the shoulders and spine. IMPRESSION: 1. Emphysema with chronic interstitial lung disease. 2. Aggressively worsened reticular interstitial opacities may represent progressive fibrosis, pulmonary edema versus interstitial pneumonia. CT lung screening (low dose) 12/08/20 CLINICAL HISTORY: Lung Screening Exam COMPARISON STUDY: No previous studies for comparison. CT DOSE: 84.71 mGy.cm TECHNIQUE: Low-dose helical CT was acquired without intravenous contrast from lung apices to bases and reconstructed at 2.5 mm every 2 mm. Automated exposure control was utilized for the study. A dose lowering technique was utilized adhering to the principles of ALARA. FINDINGS: There are multiple small mediastinal lymph nodes. No pathologically enlarged thoracic lymph nodes are present. The heart is mildly enlarged. A large hiatal hernia with partially intrathoracic stomach is noted. The central airways are patent. There is no pneumothorax or pleural effusion. Note is made of moderate emphysema. In addition, there is peripheral prominent subpleural reticulation with cystic change suggestive of honeycombing. No consolidation is identified to suggest pneumonia. There are no suspicious pulmonary nodules. No pneumothorax or pleural effusion is noted. No acute fracture or suspicious lesion is identified within the visualized skeletal structures. Low-attenuation left adrenal nodule is benign. A 1.9 cm oval-shaped density along the posterior aspect of the spleen could reflect a splenule or a low suspicion splenic lesion. IMPRESSION: 1. No suspicious pulmonary nodules. Lung RADS Category: 1 - Negative - No nodules and definitely benign nodules. Continue annual screening. 2. Emphysema. 3. Peripheral predominant subpleural reticulation with suspected honeycombing. This suggests pulmonary fibrosis. 4. Large hiatal hernia with partially intrathoracic stomach. PG Care Time/CCT Total # of Minutes Spent Total Time Spent with Patient: Total time spent is greater than 50% in coordination of care (as documented) at patient's floor/unit and/or counseling patient: Coding Level of Care Code 70196 Initial Inpt Care Lvl 3 Diagnoses Acute hypoxemic respiratory failure J96.01 COPD (chronic obstructive pulmonary disease) J44.9 Pulmonary fibrosis J84.10 Dyspnea R06.00
[2021-12-10] MEDS ORDERED: predniSONE 20 MG TAB PO SCH (09:00)
[2021-12-10] MEDS: AZITHROMYCIN 250 MG TAB PO SCH (09:00)
[2021-12-10] MEDS: guaiFENesin 600 MG TABCR PO SCH ×2 (09:00→21:19)
[2021-12-10] MEDS: SERTRALINE HCL 100 MG TABLET PO SCH (09:01)
[2021-12-10] MEDS: FLUTICASONE/VILANTEROL 100/25MCG 14 PUFFS/INHALER INH SCH (09:01)
[2021-12-10] MEDS: FERROUS SULFATE 325 MG TAB PO SCH (09:01)
[2021-12-10] MEDS: PANTOprazole 40 MG TAB PO SCH (09:01)
[2021-12-10 09:58] LABS: C Reactive Protein 5.86 mg/dl (0-0.5)
--- NOTE | 2021-12-10 11:41 | CT Scan Report ---
HIGH-RESOLUTION CT SCAN OF THE CHEST CLINICAL HISTORY: Pulmonary fibrosis. COMPARISON STUDY: Chest CT dated 12/08/2020. TECHNIQUE: Unenhanced high-resolution CT scan of the thorax was performed from the thoracic inlet to the upper abdomen. Images were acquired supine in both inspiration and expiration, as well as prone i n inspiration. Images are reviewed in the axial, sagittal, and coronal planes. IV contrast was not ad ministered for this examination as per the referring clinician. A dose lowering technique was utiliz ed adhering to the principles of ALARA. CT DOSE: 698.59 mGy.cm FINDINGS: Thyroid: Mildly atrophic. Thoracic aorta: There is atherosclerotic calcification of the thoracic aorta, which is normal in tigre corinne and demonstrates standard 3-vessel arch anatomy. Heart: The enlarged and without pericardial effusion. Lungs and pleural spaces: Emphysematous change is noted with superimposed findings of chronic interst itial lung disease. Extensive subpleural reticulation is seen throughout both lungs with a lower lobe predominance. There is associated intralobular septal thickening, groundglass change, and traction b ronchiectasis in the lower lobes. Foci of honeycombing are seen in the mid to lower lungs. The trache a and central airways are clear. There is no evidence of superimposed airspace consolidation. No pleu ral effusion is identified. There is a parenchymal scarring and atelectasis are seen throughout both lungs. Foci of air trapping are noted on the expiratory phase images, greatest in the upper lobes. A tiny fat-containing Bochdalek hernia is seen at the left lung base. Mediastinum: There are numerous mildly enlarged mediastinal lymph nodes which measure up to 12 mm in short axis. Anyi: Not well assessed without IV contrast. Axillae: There is no axillary lymphadenopathy. Upper abdomen: There is a large hiatal hernia, with greater than half the stomach located in the thor acic cavity. Partially visualized upper abdominal viscera is otherwise within normal limits. Skeletal structures: The skeletal structures are osteopenic. Degenerative changes noted in the should ers and thoracic spine. No lytic or blastic bony lesions are seen. IMPRESSION: 1. Cardiomegaly and emphysema. 2. There are changes of superimposed chronic interstitial lung disease as detailed above, likely show ing a usual interstitial pneumonitis pattern. 3. There is no evidence of superimposed airspace consolidation or pleural effusion. 4. Large hiatal hernia. 5. Enlarged mediastinal lymph nodes are nonspecific and likely related to chronic lung disease. ACT 112: Negative or not required by law. Electronically signed by: Colt Rangel M.D. 12/10/2021 11:40 AM
--- NOTE | 2021-12-10 12:38 | Hospitalist Progress Note ---
Date of Service December 10, 2021 Assessment & Plan (1) Acute hypoxemic respiratory failure: Plan: 2nd to #1 overnight oximetry study ordered - perform such on 2 L NC O2 then 2-step oxygen test tomorrow (2) UIP (usual interstitial pneumonitis): Plan: CT chest, cxr, etc all highly suspicious for such appreciate pulmonary consult no steroids at this time finish 5-day course zithromax work-up for UIP in progress (autoimmune labs, etc) overnight oximetry study tonight 2-step in am echo to eval her PA pressures and RV function (3) Prediabetes: Plan: HbA1C 5.7% -- 04/2021 cont diet control (4) Large hiatal hernia: Plan: cont PPI (5) Tobacco dependence: Plan: classification counselor to quit - especially in light of #1 and need for home O2 (6) Hypothyroidism (acquired): Plan: TSH 04/2021 wnl cont synthroid 100mcg daily (7) Hyperlipidemia: (8) Depression: Plan: hopeful for d/c home tomorrow Admission and Anticipated Discharge Date Admission Date: December 09, 2021 Subjective no issues overnight feels better with NC O2 we discussed the pulmonary consult and concern for ILD/PF she continues to work at a [employer] and asks if she will be able to cont working 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) eating well LARSON is controlled Review of Systems Review of Systems: gen - no fevers or weight loss cv - no chest pain pulm - minimal cough; no sputum GI - no N/V Physical Exam Physical Exam: gen - NAD, eating lunch, sitting in chair neck - no JVD heart - RRR, s1 s2, 1/6 ISABELLA LLSB lungs - fine, dry, bibasilar rales; no wheeze; no increased WOB abd - soft NT ND BS+ ext - no edema, pulses 2+ b/l Results & Data Results & Data ([facility]) Vital Signs (Past 12 Hours) Vital Signs Temp Pulse Resp BP Pulse Ox 12/10/21 07:28 77 18 97 12/10/21 07:15 37.0 C 74 19 125/75 93 Laboratory Results imaging/labs from this admission reviewed in detail PG Care Time/CCT Total # of Minutes Spent Total Time Spent with Patient: Total time spent is greater than 50% in coordination of care (as documented) at patient's floor/unit and/or counseling patient: Coding Level of Care Code 37573 Subseq Hosp Care Lvl 2 Diagnoses Acute hypoxemic respiratory failure J96.01 UIP (usual interstitial pneumonitis) J84.112 Prediabetes R73.03 Large hiatal hernia K44.9 Tobacco dependence F17.200 Hypothyroidism (acquired) E03.9 Hyperlipidemia E78.5 Depression F32.9
[2021-12-10] MEDS: ENOXAPARIN INJ 40 MG/0.4 ML SYR SQ SCH (21:19)
[2021-12-10] MEDS: SIMVASTATIN 20 MG TAB PO SCH (21:20)
[2021-12-11] MEDS: LEVOTHYROXINE SODIUM 100 MCG TABLET PO SCH (05:53)
--- NOTE | 2021-12-11 08:42 | Pulmonology Progress Note ---
Date of Service December 11, 2021 Assessment & Plan (1) Acute hypoxemic respiratory failure: (2) COPD (chronic obstructive pulmonary disease): (3) Pulmonary fibrosis: (4) Dyspnea: Plan: Impression: 81-year-old female with extensive history of tobacco abuse who quit smoking a year ago admitted to the hospital with hypoxemia. CT is consistent with mixed emphysema and fibrotic changes. Suspect the patient has components of both COPD as well as pulmonary fibrosis. She does have traction bronchiectasis and honeycombing and the pattern is likely consistent with a UIP pattern. Recommendations: 1. ILD: Suspect UIP/IPF. Awaiting serological evaluation. No indication for bronchoscopy or lung biopsy given the advanced age of the patient. 2. Emphysema: Outpatient PFTs are recommended. No indication for steroids she can complete the course of 5 days of azithromycin for now. 3. Overnight oximetry was reviewed. 2 L nasal cannula appears to be adequate. Recommend the patient be set up with oxygen at discharge to use 2 L with activity and at night. She should get a home pulse oximeter and monitor her oxygen levels at home and try and maintain oxygen saturations at or above 90%. Formal two-step also recommended to ensure adequacy of prescription 4. From a pulmonary standpoint, I think the patient can be dismissed home once oxygen is arranged. She should follow-up in the outpatient pulmonary clinic in 4 to 6 weeks with PFTs.. The above recommendations and plan were extensively discussed with the patient at the time of evaluation. Questions were answered to the best of my ability. She expressed understanding and is in agreement with plan as outlined. Feel free to contact us with additional questions. Otherwise we will follow her up in the clinic Admission and Anticipated Discharge Date Admission Date: December 09, 2021 Subjective Patient seen and examined. She is doing well clinically. She feels less short of breath with the oxygen in place. She is not coughing or wheezing. She is not expectorating phlegm. She denies chest pain or palpitations. She is able to walk farther with the oxygen in place. Review of Systems Review of Systems: All systems reviewed & are unremarkable except as noted in Subjective Physical Exam Constitutional: WD/WN, vitals as above Neck: trachea midline, no thyromegaly Respiratory: normal respiratory effort; no respiratory distress, no labored breathing and not tachypneic Auscultation: + crackles; no wheezes Cardiovascular: RRR, no murmur, no edema Gastrointestinal (Abdomen): normal bowel sounds, soft, nontender, no hepatosplenomegaly Musculoskeletal: Extremities: extremities normal to inspection Skin: no rashes, warm and dry Lymphatic: no cervical lymphadenopathy Results & Data Results & Data ([facility]) Vital Signs (Past 12 Hours) Vital Signs Temp Pulse Pulse Resp BP Pulse Ox Pulse Ox 12/11/21 07:47 37.0 C 89 18 118/72 90 12/11/21 03:04 76 12/11/21 00:27 37.3 C 12/10/21 22:25 37.8 C H 96 H 18 125/83 94 12/10/21 21:00 93 12/10/21 20:55 101 H Pulse Ox 12/11/21 07:47 12/11/21 03:04 95 12/11/21 00:27 12/10/21 22:25 12/10/21 21:00 12/10/21 20:55 92 Laboratory Results 12/10/21 05:27 12/10/21 05:27 ESR 89 CRP 5.86 Remaining serological evaluation pending Diagnostic Findings HIGH-RESOLUTION CT SCAN OF THE CHEST 12/10/2021, independently reviewed CLINICAL HISTORY: Pulmonary fibrosis. COMPARISON STUDY: Chest CT dated 12/08/2020. TECHNIQUE: Unenhanced high-resolution CT scan of the thorax was performed from the thoracic inlet to the upper abdomen. Images were acquired supine in both inspiration and expiration, as well as prone in inspiration. Images are reviewed in the axial, sagittal, and coronal planes. IV contrast was not administered for this examination as per the referring clinician. A dose lowering technique was utilized adhering to the principles of ALARA. CT DOSE: 698.59 mGy.cm FINDINGS: Thyroid: Mildly atrophic. Thoracic aorta: There is atherosclerotic calcification of the thoracic aorta, which is normal in caliber and demonstrates standard 3-vessel arch anatomy. Heart: The enlarged and without pericardial effusion. Lungs and pleural spaces: Emphysematous change is noted with superimposed findings of chronic interstitial lung disease. Extensive subpleural reticulation is seen throughout both lungs with a lower lobe predominance. There is associated intralobular septal thickening, groundglass change, and traction bronchiectasis in the lower lobes. Foci of honeycombing are seen in the mid to lower lungs. The trachea and central airways are clear. There is no evidence of superimposed airspace consolidation. No pleural effusion is identified. There is a parenchymal scarring and atelectasis are seen throughout both lungs. Foci of air trapping are noted on the expiratory phase images, greatest in the upper lobes. A tiny fat-containing Bochdalek hernia is seen at the left lung base. Mediastinum: There are numerous mildly enlarged mediastinal lymph nodes which measure up to 12 mm in short axis. Anyi: Not well assessed without IV contrast. Axillae: There is no axillary lymphadenopathy. Upper abdomen: There is a large hiatal hernia, with greater than half the stomach located in the thoracic cavity. Partially visualized upper abdominal viscera is otherwise within normal limits. Skeletal structures: The skeletal structures are osteopenic. Degenerative changes noted in the shoulders and thoracic spine. No lytic or blastic bony lesions are seen. IMPRESSION: 1. Cardiomegaly and emphysema. 2. There are changes of superimposed chronic interstitial lung disease as detailed above, likely showing a usual interstitial pneumonitis pattern. 3. There is no evidence of superimposed airspace consolidation or pleural effusion. 4. Large hiatal hernia. 5. Enlarged mediastinal lymph nodes are nonspecific and likely related to chronic lung disease. PG Care Time/CCT Total # of Minutes Spent Total Time Spent with Patient: Total time spent is greater than 50% in coordination of care (as documented) at patient's floor/unit and/or counseling patient: Coding Level of Care Code 63047 Subseq Hosp Care Lvl 2 Diagnoses Acute hypoxemic respiratory failure J96.01 COPD (chronic obstructive pulmonary disease) J44.9 Pulmonary fibrosis J84.10 Dyspnea R06.00
[2021-12-11] MEDS: AZITHROMYCIN 250 MG TAB PO SCH (08:43)
[2021-12-11] MEDS: SERTRALINE HCL 100 MG TABLET PO SCH (08:43)
[2021-12-11] MEDS: guaiFENesin 600 MG TABCR PO SCH (08:43)
[2021-12-11] MEDS: FERROUS SULFATE 325 MG TAB PO SCH (08:43)
[2021-12-11] MEDS: FLUTICASONE/VILANTEROL 100/25MCG 14 PUFFS/INHALER INH SCH (08:43)
[2021-12-11] MEDS: PANTOprazole 40 MG TAB PO SCH (08:43)
[2021-12-11 10:58] LABS: Influenza A virus by PCR Negative (Neg); Influenza B virus by PCR Negative (Neg); RSV by PCR Negative (Neg); SARS CoV2 RNA(COVID-19) InHosp NEGATIVE (Negative)
--- NOTE | 2021-12-11 12:48 | Discharge Summary ---
Date of Service date of admission - December 09, 2021 date of discharge - December 11, 2021 Admission HPI Per Admitting Provider Patient is a 81-year-old female with a past medical history of COPD, hypothyroidism, hyperlipidemia, depression who presented today from an outpatient visit for SOB SpO2 80% on room air in office. Patient states for the past week, she has been working at a local [employer] and has just felt more short of breath than usual with activity that is alleviated with rest. Patient does have some chronic shortness of breath, but not to this extent. Daughter states she is typically sedentary, but she has been more active this week than usual since taking on the role at the [employer]. Today, she was sitting in a recliner when daughter states she started gasping for air, which prompted visit to her PCP, who referred her to the ED for evaluation upon her O2 sats, which is reported to be 80%. Denies fever/chills, chest pain, palpitations, presyncope/syncope, weakness, fatigue, nausea, vomiting, urinary symptoms. Received COVID vaccine plus booster. No sick contacts. Patient was diagnosed with COPD within the year or so, is only on an Advair inhaler twice per day. No home oxygen. She was scheduled to have an outpatient chest CT within the month for follow-up. Upon arrival to the ED, patient was placed on nasal cannula, received nebulizer treatment, magnesium, and methylprednisolone 60 mg. Her shortness of breath was alleviated, she was breathing more comfortably with O2 sats in the 90s on 2 L nasal cannula. During my visit with her patient did get up to ambulate to bathroom, however became very short of breath with sats dropping into the 70s, patient placed back on 2L NC sats improved to mid 90s. VSS and WNL, O2 in 90s on 2L NC. ED evaluation with CBC unremarkable, CMP notable for potassium 3.1, received 40 mEq in ED, repeating BMP now. COVID negative. CXR showed emphysema with chronic interstitial lung disease and aggressively worsened reticular interstitial opacities may represent progressive fibrosis, pulmonary edema versus interstitial pneumonia. EKG showed NSR. Principal Diagnosis 1. acute hypoxic respiratory failure 2nd to pulmonary fibrosis/interstitial lung disease 2. moderate pulmonary hypertension Discharge Exam gen - NAD, sitting in chair neck - no JVD heart - RRR, s1 s2, 1/6 ISABELLA LLSB; prominent s2 sounds lungs - fine, dry, bibasilar rales; no wheeze; no increased WOB abd - soft NT ND BS+ ext - no edema, pulses 2+ b/l Discharge Data Allergies Allergy/AdvReac Type Severity Reaction Status Date / Time sulfite AdvReac Mild Headache Verified 12/09/21 14:18 Consultations [facility] - Mateo Vargas MD Procedures Performed 1. echocardiogram - * EF 60-65% * grade 1 diastolic dysfunction * PA pressure 52mmHg * dilated IVC * normal RV size & function 2. overnight oximetry study - performed on 2 L NC O2 - no hypoxia while on the 2 L O2. 3. ambulatory oxygen 2-step test - * 2 liters NC O2 at rest * 6 liters NC O2 with activity/ambulation Ordered Studies Chest X-Ray 12/09/21 12:01 XR chest 1V portable HISTORY: 81 years-old Female Dyspnea acute shortness of breath COMPARISON: Chest CT 12/08/2020 TECHNIQUE: Portable AP view of the chest FINDINGS: Cardiac silhouette is mildly enlarged. Chronic interstitial lung disease without pneumothorax, pleural effusion or overt pulmonary edema. Progressively worsened interstitial coarsening. Emphysema. Hiatal hernia. Degenerative changes of the shoulders and spine. IMPRESSION: 1. Emphysema with chronic interstitial lung disease. 2. Aggressively worsened reticular interstitial opacities may represent progressive fibrosis, pulmonary edema versus interstitial pneumonia. ACT 112: Negative or not required by law. The above report was generated using voice recognition software. It may contain grammatical, syntax or spelling errors. Electronically signed by: Glenn Richards M.D. 12/09/2021 1:[address] 12/10/21 08:56 HIGH-RESOLUTION CT SCAN OF THE CHEST CLINICAL HISTORY: Pulmonary fibrosis. COMPARISON STUDY: Chest CT dated 12/08/2020. TECHNIQUE: Unenhanced high-resolution CT scan of the thorax was performed from the thoracic inlet to the upper abdomen. Images were acquired supine in both inspiration and expiration, as well as prone in inspiration. Images are reviewed in the axial, sagittal, and coronal planes. IV contrast was not administered for this examination as per the referring clinician. A dose lowering technique was utilized adhering to the principles of ALARA. CT DOSE: 698.59 mGy.cm FINDINGS: Thyroid: Mildly atrophic. Thoracic aorta: There is atherosclerotic calcification of the thoracic aorta, which is normal in caliber and demonstrates standard 3-vessel arch anatomy. Heart: The enlarged and without pericardial effusion. Lungs and pleural spaces: Emphysematous change is noted with superimposed findings of chronic interstitial lung disease. Extensive subpleural reticulation is seen throughout both lungs with a lower lobe predominance. There is associated intralobular septal thickening, groundglass change, and traction bronchiectasis in the lower lobes. Foci of honeycombing are seen in the mid to lower lungs. The trachea and central airways are clear. There is no evidence of superimposed airspace consolidation. No pleural effusion is identified. There is a parenchymal scarring and atelectasis are seen throughout both lungs. Foci of air trapping are noted on the expiratory phase images, greatest in the upper lobes. A tiny fat-containing Bochdalek hernia is seen at the left lung base. Mediastinum: There are numerous mildly enlarged mediastinal lymph nodes which measure up to 12 mm in short axis. Anyi: Not well assessed without IV contrast. Axillae: There is no axillary lymphadenopathy. Upper abdomen: There is a large hiatal hernia, with greater than half the stomach located in the thoracic cavity. Partially visualized upper abdominal viscera is otherwise within normal limits. Skeletal structures: The skeletal structures are osteopenic. Degenerative changes noted in the shoulders and thoracic spine. No lytic or blastic bony lesions are seen. IMPRESSION: 1. Cardiomegaly and emphysema. 2. There are changes of superimposed chronic interstitial lung disease as detailed above, likely showing a usual interstitial pneumonitis pattern. 3. There is no evidence of superimposed airspace consolidation or pleural effusion. 4. Large hiatal hernia. 5. Enlarged mediastinal lymph nodes are nonspecific and likely related to chronic lung disease. ACT 112: Negative or not required by law. Electronically signed by: Colt Rangel M.D. 12/10/2021 11:40 AM Hospital Course (1) Acute hypoxemic respiratory failure: 2nd to #2 below. based on overnight oximetry study and 2-step ambulatory O2 test --- needs 2 L NC O2 at rest/sleep, and 6 L NC O2 with activity/ambulation. Of note - admission COVID test was negative. She had a one-time low-grade fever of 37.8 during the stay. Thus, a repeat COVID/RSV/flu test was run and was fully negative. Cause of fever was uncertain as it was not readily apparent she had an infectious source. (2) UIP (usual interstitial pneumonitis): Presenting symptoms of severe LARSON were secondary to PF/ILD. CT chest, cxr, etc were all highly suspicious for PF/ILD. Constellation of findings likely are from UIP. She had no evidence of complicating CHF or pneumonia. Seen by Dr Mateo Vargas - [facility]. Steroids not advised at this time. 5-day course of oral azithromycin completed. Work-up for UIP in progress (autoimmune labs, etc). Most labs were pending at time of discharge. Sed rate was elevated, however, at 89. CRP = 5.8. Patient was placed on 2 L NC O2 during the hospitalization. Her o2 sats at rest were stable on this amount. Overnight oximetry study on 2 L NC O2 showed stable O2 sats on such while sleeping. Ambulatory 2-step NC O2 test showed she will need 6 L O2 with activity. Ms Bishop will follow-up with Dr Vargas for outpatient PFTs and additional testing. Home O2 was arranged by social work prior to her discharge. (3) Pulmonary hypertension: Secondary Pulmonary HTN - due to #2. PA pressure estimated 52mmHg on echo - c/w moderate/grade 2 pulmonary HTN. O2 via NC. Will need periodic echo assessment to ensure intact RV function, etc. (4) Prediabetes: HbA1C 5.7% -- 04/2021 cont diet control as previous (5) Large hiatal hernia: cont PPI as previous (6) Tobacco dependence: quit age 80 counseled that family/friends should NOT smoke in her home due to oxygen usage (7) Hypothyroidism (acquired): TSH 04/2021 wnl cont synthroid 100mcg daily (8) Hyperlipidemia: (9) Depression: Total Time Total Time Spent Total Time Spent (In Minutes): 40 Discharge Plan Discharge Items Patient Disposition: Home - Self-Care Reason For Visit: Shortness of breath Discharge Diagnosis: 1. Shortness of breath and low oxygen levels due to suspected "pulmonary fibrosis" of the lungs 2. Pulmonary hypertension Activity: As commented below Activity Comment: light activities as tolerated Driving/Machine Use: Resume 1 day after discharge Non-emergency contact: Primary Care Provider and Power Builder Developer Call non-emergency contact if: you have any medication questions, your symptoms worsen and you have a fever Follow-up/Referrals: Nini Solitario DO [Primary Care Provider] - 12/21/21 8:20 am (see Dr Solitario within 1 week ) Lincoln Vargas MD [Physician] - 01/31/22 3:45 pm (see Dr Vargas within 1-2 weeks for your lung condition ) Diet: Regular Addtl Attending Provider Instructions: Mrs Bishop, You were hospitalized due to worsening shortness of breath and low oxygen levels. Chest x-ray and CT scan of the chest were suggestive of a lung condition called "pulmonary fibrosis." At this time it is uncertain what may have triggered the development of the fibrosis. When fibrosis occurs the lungs develop scar tissue which makes it hard to breath. You were seen by Dr Mateo Vargas, [facility], who will follow you in the lung clinic and treat this condition. A series of blood tests were sent to try and determine a potential cause of the pulmonary fibrosis. Dr Vargas also plans to do additional tests in the office. COVID testing x 2 were negative. An echocardiogram of your heart showed good heart function (no congestive heart failure). However, you have developed a condition called pulmonary hypertension. This is a direct result of the pulmonary fibrosis. In your "[facility]" pulmonary fibrosis handout it discusses pulmonary hypertension. A treatment of pulmonary hypertension is oxygen supplementation. Oxygen - please use the following - * 2 liters at rest and with sleep * 6 liters with walking/ambulation Antibiotic - * azithromycin 250mg once daily x 2 days, first dose on 12/12/21 * I sent this prescription to [facility] for you Please do not allow people to smoke in your home due to the high risk of fire because of home oxygen. Finally, please purchase a home "pulse oximeter." This is a device that fits on your finger and measures your oxygen levels in your blood. You can purchase this at [employer], [employer], [employer], etc. Please check your oxygen levels 2-3 times each day for now. If your readings are more than 88% these are acceptable readings. If your readings are 88% or less please notify your doctors right away. Follow-up - see separate section Return to [facility] if - * you have fevers over 100.5 degrees * you have worsening shortness of breath despite use of your oxygen * your oxygen levels are consistently less than 88% when you check your pulse oximeter on your finger * you have chest pains * you have worsening swelling of your legs * any other concerns It was a pleasure to care for you! Dr Frias Pending Studies at Discharge: Yes Studies:: blood work to try & determine a cause of your pulmonary fibrosis Stand-Alone Forms: My [facility], Smoking Cessation Medications and DC Order Prescriptions: New (DME) Oxygen Home Liters Per Minute See Rx Instructions .ROUTE .MEDSUPPLY Qty: 1 RF: 0 Continued sumatriptan succinate 50 mg tablet 50 mg PO .COMPLEX PRN (Reason: migraine headache) Qty: 9 RF: 5 Advair HFA 115-21 mcg/actuation HFA aerosol inhaler 2 inh inhalation BID Qty: 12 RF: 2 ferrous sulfate 325 mg (65 mg iron) tablet 325 mg PO QAM RF: 0 levothyroxine 100 mcg tablet 100 mcg PO DAILYBB RF: 0 simvastatin 20 mg tablet 20 mg PO HS RF: 0 omeprazole magnesium [Prilosec OTC] 20 mg tablet,delayed release (DR/EC) 20 mg PO DAILYBB RF: 0 No Action sertraline 100 mg tablet 100 mg PO QAM Qty: 90 RF: 1 Discharge Orders: Discharge Order (Routine); Ordered 12/11/21 Ordered By: Aneesh Umaña/Other Patient Handouts: Understanding Oxygen Therapy, Preventing Deep Vein Thrombosis Admission Data Admit Date/Time: 12/09/21 14:58 Attending Provider: Aneesh Frias Admit Provider: Robin Mtz Primary Care Provider: Nini Solitario Other Providers: Lincoln Vargas Other Interventions: Discharge Summary Assessment (RN) Last Done: 12/11/21 13:38 Coding Level of Care Code D/C DAY MANAGEMENT >30 MINS Diagnoses Acute hypoxemic respiratory failure J96.01 UIP (usual interstitial pneumonitis) J84.112 Prediabetes R73.03 Large hiatal hernia K44.9 Tobacco dependence F17.200 Hypothyroidism (acquired) E03.9 Hyperlipidemia E78.5 Depression F32.9 Pulmonary hypertension I27.20
[2021-12-16 15:06] LABS: Anti-Centromere Ab <1.0 NEG AI (<1.0 NEG); Anti-Glom Basement Antibody <1.0 AI (<1.0); Anti-Neutrophil Antibody NONE DETECTED (NONE DETECTED); Anti-SS-A <1.0 NEG AI (<1.0 NEG); Anti-SS-B <1.0 NEG AI (<1.0 NEG); Anti-dsDNA Recombinant 10 IU/mL; Aspergillus fumigatus NEGATIVE (NEGATIVE); Cyclic Citrullinated Pep IgG <16 UNITS; JO 1 Antibody <1.0 NEG AI (<1.0 NEG); Proteinase-3 Ab <1.0 AI; RNP Antibody <1.0 NEG AI (<1.0 NEG); Rheumatoid Factor <14 IU/mL (<14); Scleroderma Anti Scl-70 Ab <1.0 NEG AI (<1.0 NEG); Sm Antibody <1.0 NEG AI (<1.0 NEG)
== END 2021-12-11 15:18 | disposition home or self-care (01) | DRG 189 ==
LOC: ED 11:41 → EDINP 14:58 → SUATTDRO 14:58 → 3E 17:13
DX: E78.5 Hyperlipidemia, unspecified; Z66 Do not resuscitate; J84.111 Idiopathic interstitial pneumonia, not otherwise specified; E03.9 Hypothyroidism, unspecified; Z79.899 Other long term (current) drug therapy; K44.9 Diaphragmatic hernia without obstruction or gangrene; F32.9 Major depressive disorder, single episode, unspecified; Z87.891 Personal history of nicotine dependence; J84.10 Pulmonary fibrosis, unspecified; J44.1 Chronic obstructive pulmonary disease with (acute) exacerbation; D50.9 Iron deficiency anemia, unspecified; H35.30 Unspecified macular degeneration; Z79.890 Hormone replacement therapy; E87.6 Hypokalemia; J96.01 Acute respiratory failure with hypoxia